=== PATIENT | female | born 1980 | race Caucasian/White ===

== ENCOUNTER 2020-04-24 14:50 | Emergency (ER) | payer MEDICAID ==
[~2020-04-24] VITALS: Ht 170.2 cm; Wt 90.7 kg
[~2020-04-24 14:50] MED LIST: PREN1TAB78 MT
[2020-04-24] MEDS ORDERED: SODIUM CHLORIDE 0.9% 1,000 ML IV ONE (15:00)
[2020-04-24] MEDS ORDERED: ONDANSETRON HCL 4MG/2ML INJ IV STA (15:00)
[2020-04-24] MEDS ORDERED: ASPIRIN 81MG TABLET PO ONE (15:00)
[2020-04-24 15:28] LABS: BASOPHILS % 0.3 % (0.0-2.0); EOSINOPHILS % 0.9 % (0.0-5.0); HEMATOCRIT. 38.9 % (36.0-48.0); HEMOGLOBIN. 12.8 g/dL (12.0-16.0); LYMPHOCYTES % 32.4 % (20.0-50.0); MEAN CORPUSCULAR HEMOGLOBIN 30.3 pg (28.0-32.0); MEAN CORPUSCULAR VOLUME 91.9 fL (81.0-99.0); MEAN PLATELET VOLUME 8.7 fl (7.4-10.4); MONOCYTES % 7.7 % (2.0-8.0); NEUTROPHILS % 58.7 % (40.0-76.0); PLATELET 267 x1000/uL (130-400); RED BLOOD CELL COUNT 4.23 mill/uL (4.2-5.4)
[2020-04-24 15:32] LABS: CHLORIDE 104 mEq/L (98-107)
[2020-04-24 15:49] LABS: HCG SCREEN NEGATIVE
[2020-04-24] MEDS ORDERED: KETOROLAC 30MG/ML VIAL IV NR (16:15)
[2020-04-24 16:39] VITALS: BP 105/60
== END 2020-04-24 16:46 | disposition home or self-care (01) ==
LOC: ER 14:50
DX: R07.89 Other chest pain (principal); E78.00 Pure hypercholesterolemia, unspecified
CPT/HCPCS: 36415; 71045; 80053; 83690; 83880; 84484; 84703; 85025; 93005; 96361; 96374; 99285; J2405; J7030; Z7610

== ENCOUNTER 2021-09-11 17:20 | Emergency (ER) | payer MEDICAID ==
[~2021-09-11] VITALS: Ht 170.2 cm; Wt 91.0 kg
[2021-09-11] MEDS ORDERED: ONDANSETRON 4MG ODT PO STA (20:04)
[2021-09-11] MEDS ORDERED: KETOROLAC 60MG/2ML VIAL IM STA (20:04)
[2021-09-11 20:23] VITALS: BP 134/86
[2021-09-11 20:53] LABS: BASOPHILS % 0.3 % (0.0-2.0); EOSINOPHILS % 0.9 % (0.0-5.0); HEMATOCRIT. 39.4 % (36.0-48.0); HEMOGLOBIN. 13.2 g/dL (12.0-16.0); LYMPHOCYTES % 33.4 % (20.0-50.0); MEAN CORPUSCULAR HEMOGLOBIN 29.9 pg (28.0-32.0); MEAN CORPUSCULAR VOLUME 89.2 fL (81.0-99.0); MEAN PLATELET VOLUME 8.2 fl (7.4-10.4); MONOCYTES % 5.6 % (2.0-8.0); NEUTROPHILS % 59.8 % (40.0-76.0); PLATELET 326 x1000/uL (130-400); RED BLOOD CELL COUNT 4.41 mill/uL (4.2-5.4); RED CELL DISTRIBUTION WIDTH 13.1 % (11.6-14.6)
[2021-09-11 21:01] LABS: CHLORIDE 108 mEq/L (98-107)
[2021-09-11 22:05] LABS: CLARITY URINE CLEAR (CLEAR); COLOR URINE YELLOW (YELLOW); KETONES URINE NEGATIVE (NEGATIVE); LEUKOCYTE ESTERASE URINE NEGATIVE (NEGATIVE); NITRITE URINE NEGATIVE (NEGATIVE); OCCULT BLOOD URINE NEGATIVE (NEGATIVE); PH URINE 5.5 (4.5-8.0); PROTEIN URINE NEGATIVE (NEGATIVE); SPECIFIC GRAVITY URINE 1.018 (1.005-1.030); UROBILINOGEN URINE 0.2 E.U./dL (0.2-1.0)
[2021-09-11] MEDS ORDERED: TAMS-11 MT (22:58)
[2021-09-11] MEDS ORDERED: KETO10TA2 MT (22:58)
== END 2021-09-11 23:05 | disposition home or self-care (01) ==
LOC: ER 17:20
DX: R10.11 Right upper quadrant pain (principal); K76.0 Fatty (change of) liver, not elsewhere classified; E78.00 Pure hypercholesterolemia, unspecified; Z98.51 Tubal ligation status
CPT/HCPCS: 36415; 76700; 80053; 81003; 81025; 83690; 85025; 96372; 99284; J1885; Q0162

== ENCOUNTER 2022-01-09 07:58 | Emergency (ER) | payer MEDICAID ==
[~2022-01-09] VITALS: Ht 172.7 cm; Wt 88.0 kg
[~2022-01-09 07:58] MED LIST changes: +KETO10TA2 MT; +TAMS-11 MT
[2022-01-09 08:11] VITALS: BP 124/66
[2022-01-09 09:13] LABS: BASOPHILS % 0.3 % (0.0-2.0); CHLORIDE 105 mEq/L (98-107); EOSINOPHILS % 1.2 % (0.0-5.0); HEMATOCRIT. 39.1 % (36.0-48.0); LYMPHOCYTES % 27.3 % (20.0-50.0); MEAN CORPUSCULAR HEMOGLOBIN 29.8 pg (28.0-32.0); MEAN CORPUSCULAR VOLUME 89.8 fL (81.0-99.0); MEAN PLATELET VOLUME 8.2 fl (7.4-10.4); MONOCYTES % 5.1 % (2.0-8.0); NEUTROPHILS % 66.1 % (40.0-76.0); PLATELET 310 x1000/uL (130-400); RED BLOOD CELL COUNT 4.36 mill/uL (4.2-5.4); RED CELL DISTRIBUTION WIDTH 13.3 % (11.6-14.6)
== END 2022-01-09 10:03 | disposition home or self-care (01) ==
LOC: ER 08:04
DX: R19.7 Diarrhea, unspecified (principal); E78.00 Pure hypercholesterolemia, unspecified; Z98.51 Tubal ligation status
CPT/HCPCS: 36415; 80053; 85025; 99283

== ENCOUNTER 2024-01-30 02:17 | Emergency (ER) | payer MEDICAID ==
[~2024-01-30] VITALS: Ht 170.2 cm; Wt 90.0 kg
[2024-01-30 02:34] VITALS: O2SAT 96
[2024-01-30 03:09] LABS: BASOPHILS % 0.4 % (0.0-2.0); HEMATOCRIT. 40.8 % (36.0-48.0); HEMOGLOBIN. 13.2 g/dL (12.0-16.0); LYMPHOCYTES % 41.9 % (20.0-50.0); MEAN CORPUSCULAR HEMOGLOBIN 30.3 pg (28.0-32.0); MEAN CORPUSCULAR HGB CONC 32.4 g/dL (31.0-37.0); MEAN CORPUSCULAR VOLUME 93.5 fL (81.0-99.0); MEAN PLATELET VOLUME 8.7 fl (7.4-10.4); MONOCYTES % 6.3 % (2.0-8.0); NEUTROPHILS % 50.4 % (40.0-76.0); PLATELET 282 x1000/uL (130-400); RED BLOOD CELL COUNT 4.36 mill/uL (4.2-5.4); RED CELL DISTRIBUTION WIDTH 13.4 % (11.6-14.6); WHITE BLOOD COUNT 7.5 x1000/uL (4.5-11.0)
[2024-01-30 03:18] LABS: CHLORIDE 106 mEq/L (98-107); POTASSIUM 3.9 mEq/L (3.5-5.1); SODIUM 138 mEq/L (136-145)
[2024-01-30 03:19] LABS: CARBON DIOXIDE 24 mEq/L (21-32)
[2024-01-30 03:20] LABS: CALCIUM 9.1 mg/dL (8.7-10.4)
[2024-01-30 03:24] LABS: CREATININE 0.7 mg/dL (0.6-1.0)
[2024-01-30 03:25] LABS: GLUCOSE 100 mg/dL (70-105); UREA NITROGEN BLOOD 12 mg/dL (9-23)
[2024-01-30] MEDS: LOPERAMIDE HCL 2MG CAPSULE PO ONE (03:25)
[2024-01-30 03:26] LABS: ALANINE AMINOTRANSFERASE 17 IU/L (10-49); ALBUMIN 4.5 g/dL (3.2-4.8); ASPARTATE AMINOTRANSFERASE 17 IU/L (<34)
[2024-01-30] MEDS: LOPERAMIDE HCL 2MG CAPSULE PO NR (03:26)
[2024-01-30 03:27] LABS: BILIRUBIN DIRECT 0.1 mg/dL (<=3.0); BILIRUBIN TOTAL 0.5 mg/dL (0.1-1.0)
[2024-01-30] MEDS: ACETAMINOPHEN 325MG TABLET PO NR (03:37)
[2024-01-30] MEDS ORDERED: IBUP-2029 MT (03:46)
[2024-01-30] MEDS ORDERED: ONDA4TAB50 MT (03:46)
[2024-01-30] MEDS ORDERED: IMOD MT (03:46)
[2024-01-30] MEDS: ONDANSETRON 4MG ODT PO ONE (03:54)
[2024-01-30 03:57] VITALS: BP 118/67; PULSE 60; RESP 19; TEMP 98.3
[2024-01-30 04:06] LABS: CLARITY URINE CLEAR (CLEAR); COLOR URINE YELLOW (YELLOW); GLUCOSE URINE NEGATIVE (NEGATIVE); KETONES URINE NEGATIVE (NEGATIVE); LEUKOCYTE ESTERASE URINE NEGATIVE (NEGATIVE); NITRITE URINE NEGATIVE (NEGATIVE); OCCULT BLOOD URINE NEGATIVE (NEGATIVE); PROTEIN URINE NEGATIVE (NEGATIVE); SPECIFIC GRAVITY URINE 1.006 (1.005-1.030); UROBILINOGEN URINE 0.2 E.U./dL (0.2-1.0)
== END 2024-01-30 04:00 | disposition home or self-care (01) ==
LOC: ER 02:23
DX: K58.0 Irritable bowel syndrome with diarrhea (principal); E78.00 Pure hypercholesterolemia, unspecified; I10 Essential (primary) hypertension; Z00.00 Encounter for general adult medical examination without abnormal findings; Z98.51 Tubal ligation status
CPT/HCPCS: 99284; 80076; 80048; 81003; 83690; 85025; 86850; 86900; 86901; 36415; Q0162